=== PATIENT | female | born 1970 | race African-American/Black ===

== ENCOUNTER 2019-07-01 16:05 | Emergency (ER) | payer OTHER ==
[2019-07-01 16:22] VITALS: BMI 22.8
[2019-07-01] MEDS ORDERED: PANTOPRAZOLE SODIUM 40 MG VIAL IVPUSH ONE (16:53)
[2019-07-01] MEDS ORDERED: OCTREOTIDE ACETATE 50 MCG/1 ML - 1 ML VIAL IVPUSH ONE (16:57)
[2019-07-01] MEDS ORDERED: OCTREOTIDE ACETATE 200 MCG, OCTREOTIDE ACETATE 1,000 MCG in DEXTROSE 5%-WATER - 496 ML IVPB SCH (17:00)
[2019-07-01] MEDS ORDERED: PANTOPRAZOLE SODIUM 40 MG VIAL ONE (17:03)
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
[2019-07-01 17:24] LABS: BASO % 0.5 % (0-2.0); EOS % 6.4 % (0-4.5); HEMATOCRIT 41.5 % (32.4-45.2); HEMOGLOBIN 13.3 GM/dL (10.7-15.3); LYMPH % 32.8 % (8-40); MCH 28.7 pg (25.7-33.7); MCHC 32.1 g/dl (32.0-36.0); MEAN CELL VOLUME 89.4 fl (80-96); MEAN PLT VOLUME 10.1 fl (7.5-11.1); MONO % 9.6 % (3.8-10.2); NEUT % 50.7 % (42.8-82.8); PLATELET COUNT 233 K/MM3 (134-434); RBC 4.64 M/mm3 (3.60-5.2); RDW 14.1 % (11.6-15.6); WHITE BLOOD COUNT 4.9 K/mm3 (4.0-10.0)
[2019-07-01 17:40] LABS: INR 0.93 (0.83-1.09)
[2019-07-01 17:43] LABS: ACTIVATED PTT 32.5 SECONDS (25.2-36.5)
[2019-07-01 17:52] LABS: COCAINE, UR NEGATIVE ng/ml (CUTOFF=300); METHADONE, UR NEGATIVE ng/ml (CUTOFF=300); OPIATES, URI NEGATIVE ng/ml (CUTOFF=300); PHENCYCLIDINE,URINE NEGATIVE ng/ml (CUTOFF=25); URINE AMPHETAMINES NEGATIVE ng/ml (CUTOFF=500); URINE BARBITURATES NEGATIVE ng/ml (CUTOFF=200); URINE BENZODIAZEPINES NEGATIVE ng/ml (CUTOFF=200)
[2019-07-01 17:57] LABS: PHOSPHOROUS 4.3 mg/dL (2.5-4.9)
[2019-07-01 18:01] LABS: URINE APPEARANCE Error; URINE BILIRUBIN NEGATIVE (NEGATIVE); URINE COLOR YELLOW; URINE GLUCOSE (UA) NEGATIVE (NEGATIVE); URINE KETONE NEGATIVE (NEGATIVE); URINE LEUK ESTERASE NEGATIVE (NEGATIVE); URINE NITRITE NEGATIVE (NEGATIVE); URINE PROTEIN NEGATIVE (NEGATIVE); URINE UROBILINOGEN 0.2 mg/dL (0.2-1.0)
[2019-07-01 18:18] LABS: ALBUMIN 3.8 g/dl (3.4-5.0); BILIRUBIN,TOTAL 0.3 mg/dL (0.2-1); BLOOD UREA NITROGEN 7.9 mg/dL (7-18); CALCIUM 9.4 mg/dL (8.5-10.1); CREATININE 0.7 mg/dL (0.55-1.3); POTASSIUM 4.1 mmol/L (3.5-5.1); TOT PROT 7.4 g/dl (6.4-8.2)
--- NOTE | 2019-07-01 18:55 | PDOC ---
Documentation entered by David Curran SCRIBE, acting as scribe for Etta Pike MD. Etta Pike MD: This documentation has been prepared by the Bina bailey Xhesika, SCRIBE, under my direction and personally reviewed by me in its entirety. I confirm that the documentation accurately reflects all work, treatment, procedures, and medical decision making performed by me. Attending Attestation - Resident Resident Name: Marylu Trejo - ED Attending Attestation I have performed the following: I have examined & evaluated the patient, The case was reviewed & discussed with the resident, I agree w/resident's findings & plan - HPI HPI: 07/01/19 17:21 The patient is a 48 year old female with a significant past medical history of depression, EtOH usage (3-4 24oz cans of Brigid daily for 15ys), crack/ cocaine abuse who presents to the ED from [facility] for 2 weeks of bright red blood per rectum and blood tinged emesis, one episode at [facility]. Patient states she endorses intermittent blood tinged emesis, increased frequency, headache, nausea, and vomiting. The patient reports having diffuse abdominal pain and epigastric pain worsened when drinking and relieved when lying on her side. Patient states her last drink was this morning (24oz of brigid). Patient notes her LMP was 2014. Patient denies history of hemorrhoids. Patient denies anoreceptive intercourse. Denies fever, chills, chest pain, hemoptysis, SOB, palpitations, dizziness, weakness, D, bladder and bowel problems, leg swelling, No sick contacts or travel. No new changes in medications. Allergies: None Social history: etoh abuse. crack/cocaine abuse. marijuana use. Meds: as documented in EMR 07/01/19 20:49 - Physicial Exam PE: 07/01/19 17:23 Agree with the resident's HPI and PE as documented in the electronic medical record. NAD, well appearing, awake and alert EOMI, PERRL, MMM, nl conjunctiva, anicteric ; neck supple. lungs clear, RRR, abdomen soft nontender. Back nontender. COTE x4 , no focal neuro deficits. No peripheral edema. normal color for ethnicity, WWP. 07/01/19 19:46 - Medical Decision Making 07/01/19 19:47 hpi as documented VS reviewed wnl Vital Signs Temp Pulse Resp BP Pulse Ox 98.2 F 52 L 18 135/92 98 07/01/19 16:17 07/01/19 16:17 07/01/19 16:17 07/01/19 16:17 07/01/19 16:32 DDx PUD, ulcer, alcohol gastritis, esophageal spasm, GERD, electrolyte/ metabolic derangements, dehydration, UGIB, LGIB guaiac neg for blood, rectal exam unremarkable for blood labs and lytes wnl, lipase normal. neg preg test. no wbc ct, nontoxic, doubt infection H/H wnl, no anemia. coags normal, no coagulopathy or liver dysfunction. given GI cocktail, IVF and PPI, reassess abdomen benign, no peritoneal findings. feels better. workup provided. tolerated PO intake abdomen sono neg for ascites, GB unremarkable. no e/o cholecystitis. cxr clear, no acute pathology Pt to be discharged in stable condition back to [facility], communicated back with unremarkable workup, DC with Protonix daily, avoid alcohol/triggers, supportive management and GI followup. Patient made aware of clinical impression , treatment recommendations and disposition plan, return precautions discussed ( including but not limited to new or persistent/worsening symptoms, pain, fevers , or signs of infection, chest pain, respiratory distress, inability to tolerate oral intake, dehydration, syncope, or neurologic changes). Follow up with PMD and/or GI specialist as recommended, follow up information provided, take medications as instructed for duration of time. continue with supportive care, avoid triggers and precipitants. All questions answered to patient's satisfaction and expressed understanding and comfort with this. At the time of discharge, the patient is alert, clinically improved, tolerating po and verbalizes understanding of instructions, satisfied with the care received and felt comfortable with the plan. Patient does not suffer from an acute life- threatening medical condition at this time and is safe for outpatient follow- up. 07/01/19 20:51
[2019-07-01] MEDS ORDERED: MAG HYDROX/AL HYDROX/SIMETH 30 ML UNIT-DOSE CUP PO ONE (19:44)
[2019-07-01 19:57] VITALS: BP 127/85; PULSE 67; TEMP 98
[2019-07-01] MEDS ORDERED: MAG HYDROX/AL HYDROX/SIMETH 30 ML UNIT-DOSE CUP ONE (20:22)
[2019-07-02 09:08] LABS: N-TERMINAL BNP 118.8 pg/ml (5-125)
--- NOTE | 2019-07-02 11:31 | EKG ---
Test Reason : Blood Pressure : / mmHG Vent. Rate : 054 BPM Atrial Rate : 054 BPM P-R Int : 168 ms QRS Dur : 070 ms QT Int : 494 ms P-R-T Axes : 051 -02 050 degrees QTc Int : 468 ms SINUS BRADYCARDIA POSSIBLE LEFT ATRIAL ENLARGEMENT SEPTAL INFARCT , AGE UNDETERMINED ABNORMAL ECG NO PREVIOUS ECGS AVAILABLE Confirmed by DIMITRI DAMON MD ([id number]) on 07/02/2019 11:30:48 AM Referred By: Confirmed By:DIMITRI DAMON MD
== END 2019-07-01 23:14 | disposition home or self-care (01) ==
LOC: JER 16:05
PROC: 3E033GC Introduction of Other Therapeutic Substance into Peripheral Vein, Percutaneous Approach (ICD-10-PCS; principal; 2019-07-01)
DX: K29.70 Gastritis, unspecified, without bleeding (principal)
CPT/HCPCS: 36415; 71046-TC-FY; 76705-TC; 80053; 80307; 81003; 82150; 82272; 82550; 83605; 83690; 83735; 83880; 84100; 84484; 84703; 85025; 85610; 85730; 86850; 86900; 86901; 87086; 93005; 93010; 96365; 96375; 99285-25

== ENCOUNTER 2019-07-01 23:30 | Inpatient (IN) | payer OTHER ==
[2019-07-01 13:31] VITALS: BMI 22.8
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
--- NOTE | 2019-07-01 15:14 | PN ---
Teaching Attending Note Name of Resident: Rohit Cabello ATTENDING PHYSICIAN STATEMENT I saw and evaluated the patient. I reviewed the resident's note and discussed the case with the resident. I agree with the resident's findings and plan as documented. SUBJECTIVE: 48 y.o. female requesting detox from etoh use , reports 4 large cans of mixed drinks / day x 15 years, latest use today , reports nausea/ vomiting blood - bright red mixed in with vomitus , as well as Vital Signs - 24 hr 07/01/19 13:24 Temperature 97 F L Pulse Rate 65 Respiratory 20 Rate Blood Pressure 140/89 BRBPR on several occasions , icteric sclerae previously . OBJECTIVE: diffuse abdominal tenderness , anxious , mild UE tremors . ASSESSMENT AND PLAN: refer to ER for further eval & tx . Pt left w/ EMS in stable condition .
--- NOTE | 2019-07-01 23:38 | HP ---
CIWA Score Nausea/Vomitin-Int. Nausea w/Dry Heave Muscle Tremors: 4-Moderate,w/Arms Extend Anxiety: 1-Mildly Anxious Agitation: 2 Paroxysmal Sweats: 1-Minimal Palms Moist Orientation: 0-Oriented Tacttile Disturbances: 0-None Auditory Disturbances: 0-None Visual Disturbances: 0-None Headache: 0-None Present CIWA-Ar Total Score: 12 - Admission Criteria OAS Guidelines: Admission for Medically Managed Detox: Requires at least one of the followin. CIWA greater than 12 2. Seizures within the past 24 hours 3. Delirium tremens within the past 24 hours 4. Hallucinations within the past 24 hours 5. Acute intervention needed for co occurring medical disorder 6. Acute intervention needed for co occurring psychiatric disorder 7. Severe withdrawal that cannot be handled at a lower level of care (continued vomiting, continued diarrhea, abnormal vital signs) requiring intravenous medication and/or fluids 8. Patient presents the following: CIWA greater than 12 Admission Criteria Met: Admission criteria met Admission ROS [facility] - [facility] Chief Complaint: Returning from ER for admission for treatment of my alcohol problem. Allergies/Adverse Reactions: Allergies Allergy/AdvReac Type Severity Reaction Status Date / Time No Known Allergies Allergy Verified 07/01/19 16:22 History of Present Illness: 48 yo returns from [facility] Ed after referral earlier, by [facility], for evaluation of vomiting w/ presence of blood. Patient presented earlier w/ CIWA of 16 and returns for alcohol detox. Current CIWA = 12. PE completed in [facility] ED and in [facility] and will defer at this time. Labs: CBC/CMP/UA reviewed. ED Report: " DDx PUD, ulcer, alcohol gastritis, esophageal spasm, GERD, electrolyte/ metabolic derangements, dehydration, UGIB, LGIB guaiac neg for blood, rectal exam unremarkable for blood labs and lytes wnl, lipase normal. neg preg test. no wbc ct, nontoxic, doubt infection H/H wnl, no anemia. coags normal, no coagulopathy or liver dysfunction. given GI cocktail, IVF and PPI, reassess abdomen benign, no peritoneal findings. feels better. workup provided. tolerated PO intake abdomen sono neg for ascites, GB unremarkable. no e/o cholecystitis. cxr clear, no acute pathology Pt to be discharged in stable condition back to [facility], communicated back with unremarkable workup, DC with Protonix daily, avoid alcohol/triggers, supportive management and GI followup." Patient verbalizes an understanding of importance of following up w/ GI referral post discharge. Alcohol use began at age 7. Current usage 3- 4 24 oz Margaritas daily. Crack use began at age 33. Uses a few x/month. Last use 2 days ago. Nicotine use began at age 7. Does not smoke daily. 5-6 cig/week. Utox negative for illicit drugs. B/P: 155/95 HR: 58 Hx: Blackouts. Denies seizures. PMHx: Gastritis w/ vomiting w/ blood x 1 -2 months associated w/ abd pain. Intermittent bloody diarrhea x 2 days. Denies other significant PMH. MHHx: Depression. Denies thoughts of harming self or others. Unsure of MH meds. Prescription filled at [facility] in [facility]. Was also taking Vivitrol for alcohol use disorder. Last injection . Denies opiate medications or illicit use. Patient does not want to be restarted on Vivitrol. States it didn't work and she still drank. SHx: Unemployed. Homeless (living with a friend). Exam Limitations: No Limitations - Ebola screening Have you traveled outside of the country in the last 21 days: No (N) Have you had contact with anyone from an Ebola affected area: No Have you been sick,other than usual withdrawal symptoms: No (Denies exposure to measles) Do you have a fever: No - Review of Systems Constitutional: Changes in sleep (Difficulty falling and staying asleep.) EENT: reports: Blurred Vision Respiratory: reports: No Symptoms reported Cardiac: reports: Palpitations (Intermittent fast beating of heart unrelated to activity) GI: reports: Diarrhea (watery and somewhat uncontrollable. Using pull-ups.), Nausea, Rectal Bleeding, Vomiting (w/ blood), Abdominal cramping : reports: Frequency (w/o burning or blood) Musculoskeletal: reports: Back Pain (Chronic low back pain sitting or laying too long.) Integumentary: reports: No Symptoms Reported Neuro: reports: Numbness (Intermittent in fingers) Endocrine: reports: No Symptoms Reported Hematology: reports: No Symptoms Reported Psychiatric: reports: Judgement Intact, Orientated x3, Anxious, Depressed ( Denies thoughts of harming self or others) Patient History - Patient Medical History Hx Anemia: No Hx Cancer: No Hx Cardiac Disorders: No Hx Congestive Heart Failure: No HX Cerebrovascular Accident: No Hx Gastrointestinal Disorders: No Hx Liver Disease: No Hx Sexually Transmitted Disorders: No Hx Hepatitis C: No - Patient Surgical History Past Surgical History: No - PPD History Previous Implant?: Yes (CHR done on 07/01/19) Documented Results: Positive w/o proof Implanted On Prior [facility] Admission?: No PPD to be Administered?: No - Reproductive History Patient is a Female of Child Bearing Age (11 -55 yrs old): Yes Patient : No - Smoking Cessation Smoking history: Current some day smoker Have you smoked in the past 12 months: Yes Aproximately how many cigarettes per day: 1 Hx Chewing Tobacco Use: No Initiated information on smoking cessation: No 'Breaking Loose' booklet given: 07/02/19 - Substance & Tx. History Hx Alcohol Use: Yes Hx Substance Use: No Substance Use Type: Alcohol, Cocaine Hx Substance Use Treatment: Yes (Detox - years ago; Currently on Vivitrol ) - Substances abused Alcohol Substance route: Oral Frequency: Daily Amount used: a lot of 4 cans of margeritas/wine Age of first use: 7 Date of last use: 07/01/19 Cocaine Substance route: Smoking Frequency: 1-3 times last 30 days Amount used: $40-$50 Age of first use: 33 Date of last use: 06/29/19 Family Disease History - Family Disease History Family Disease History: Diabetes: Father (HTN), Mother (HTN), Heart Disease: Father, Mother Admission Physical Exam S - Vital Signs Vital Signs: Vital Signs - 24 hr 07/01/19 13:24 Temperature 97 F L Pulse Rate 65 Respiratory 20 Rate Blood Pressure 140/89 - Physical General Appearance: Yes: Mild Distress, Tremorous, Sweating, Anxious Respiratory: Yes: Lungs Clear, Normal Breath Sounds, No Respiratory Distress Cardiology: Yes: Regular Rhythm, S1, S2, Bradycardia (HR: 58) Abdominal: Yes: Soft, Increased Bowel Sounds, Tenderness (MId quad tenderness upon palpation. No guarding. No rebound.) Neurological: Yes: Fully Oriented, Alert - Diagnostic (1) Alcohol dependence with uncomplicated withdrawal Current Visit: Yes Status: Acute (2) Nicotine abuse Current Visit: Yes Status: Chronic (3) Gastritis Current Visit: Yes Status: Acute Qualifiers: Gastritis type: alcoholic Chronicity: acute Gastritis bleeding: presence of bleeding unspecified Qualified Code(s): K29.20 - Alcoholic gastritis without bleeding (4) History of hematemesis Current Visit: Yes Status: Acute Comment: Evaluated ED Cleared for Admission [facility] - Detox or Rehab [facility] Level of Care: Medically Managed Detox Regimen/Protocol: Librium Claeared for Rehab Admission: No Breathalyzer - Breathalyzer Breathalyzer: 0 Urine Drug Screen - Test Device Lot number: [id number] Expiration date: 04/01/19 - Control Is test valid?: Yes - Results Drug screen NEGATIVE: Yes Inpatient Rehab Admission - Rehab Decision to Admit Inpatient rehab admission?: No
[2019-07-02] MEDS ORDERED: MAGNESIUM CITRATE 300 ML BOTTLE PO PRN (00:31)
[2019-07-02] MEDS ORDERED: NICOTINE POLACRILEX 2 MG GUM BUC PRN (00:31)
[2019-07-02] MEDS ORDERED: chlordiazePOXIDE HCL 10 MG CAPSULE PO PRN (00:31)
[2019-07-02] MEDS ORDERED: MAG HYDROX/AL HYDROX/SIMETH 30 ML UNIT-DOSE CUP PO PRN (00:31)
[2019-07-02] MEDS ORDERED: ACETAMINOPHEN 325 MG TABLET (FP) PO PRN ×2 (00:31)
[2019-07-02] MEDS ORDERED: MENTHOL/PHENOL 1 EACH UD MM PRN (00:31)
[2019-07-02] MEDS ORDERED: MAGNESIUM HYDROX 2400MG/30ML ORAL SUSPENSION 30 ML CUP PO PRN (00:31)
[2019-07-02] MEDS ORDERED: chlordiazePOXIDE HCL 25 MG CAPSULE PO ONE (00:31)
[2019-07-02] MEDS ORDERED: METHOCARBAMOL 500 MG TABLET PO PRN (00:31)
[2019-07-02] MEDS: chlordiazePOXIDE HCL 25 MG CAPSULE PO SCH ×3 (05:55→21:21)
[2019-07-02] MEDS: PANTOPRAZOLE 40 MG TABLET (FP) PO SCH ×2 (10:13→21:21)
[2019-07-02] MEDS: PRENATAL VITAMINS W/ FOLIC ACID TABLET (FP) PO SCH (10:13)
--- NOTE | 2019-07-02 11:06 | PN ---
S CIWA - CIWA Score Nausea/Vomitin-No Nausea/No Vomiting Muscle Tremors: 2 Anxiety: 3 Agitation: 0-Normal Activity Paroxysmal Sweats: 3 Orientation: 0-Oriented Tacttile Disturbances: 0-None Auditory Disturbances: 0-None Visual Disturbances: 0-None Headache: 2-Mild CIWA-Ar Total Score: 10 [facility] Progress Note (SOAP) Subjective: c/o headache, sweats, anxiety, and interrupted sleep. Objective: 07/02/19 11:06 Vital Signs 07/02/19 07/02/19 07/02/19 03:30 07:15 09:47 Temperature 97.9 F 97.5 F L Pulse Rate 53 L 52 L Respiratory 18 16 18 Rate Blood Pressure 138/63 140/98 Assessment: 07/02/19 11:06 AOX3, in no acute respiratory distress. Full ROM, ambulating in the unit. withdrawal symptoms. Plan: continue detox.
--- NOTE | 2019-07-02 13:09 | PDOC ---
Patient Follow-up (Call Back) - Post ED Follow - Up Condition at time of discharge: Stable Reason for Call Back: Radiology (pt with R breast nodules noted on x-ray per Dr. Hanna. Findings communicated to TAMERA Suarez at [address])
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
--- NOTE | 2019-07-02 14:07 | PN ---
[facility] Progress Note Note: I was notified by TAMERA Acuna that she had a call back from [facility] Radiology department that pt's chest xray showed Right breast nodules. "Reason for Call Back: Radiology (pt with R breast nodules noted on x-ray per Dr. Hanna. Findings communicated to TAMERA Suarez at [facility])" pt was examined at bedside in no respiratory distress. Pt states she has right breast lump for over 25years now which her pmd is aware. Pt also states that as per the previous imaging studies she has had, she is been told that the lump in her right breast is not cancerous and she has to go for surgery for it to be removed, which she states she has not considered for several years now because of the scar the surgery will leave on her breast. Pt is instructed to ask for a copies of the imaging result upon discharge so that she can follow-up with her PMD. Pt verbalized understanding.
[2019-07-02] MEDS: THIAMINE HCL 100 MG TABLET (FP) PO SCH (21:21)
[2019-07-02] MEDS: MELATONIN 5 MG TABLETS PO PRN (21:21)
[2019-07-03] MEDS: chlordiazePOXIDE 5 MG CAPSULE PO SCH ×3 (05:24→22:44)
[2019-07-03] MEDS: PANTOPRAZOLE 40 MG TABLET (FP) PO SCH ×2 (10:24→22:44)
[2019-07-03] MEDS: PRENATAL VITAMINS W/ FOLIC ACID TABLET (FP) PO SCH (10:24)
--- NOTE | 2019-07-03 16:24 | PN ---
[facility] CIWA - CIWA Score Nausea/Vomitin-No Nausea/No Vomiting Muscle Tremors: 2 Anxiety: 2 Agitation: 2 Paroxysmal Sweats: 2 Orientation: 0-Oriented Tacttile Disturbances: 0-None Auditory Disturbances: 0-None Visual Disturbances: 0-None Headache: 0-None Present CIWA-Ar Total Score: 8 [facility] Progress Note (SOAP) Subjective: Diarrhea, anxious; c/o urinating a lot (urgency, denies dysuria), patient stated urinating a lot for > 1 year and her PCP is aware and told her every thing was fine. Patient encouraged to follow up with PCP and request Urology referral for further evaluation. Objective: 07/03/19 16:22 Last Vital Signs Temp Pulse Resp BP Pulse Ox 98.1 F 70 18 108/65 07/03/19 13:51 07/03/19 13:51 07/03/19 13:51 07/03/19 13:51 Laboratory Tests 07/03/19 07:30 RPR Titer Nonreactive Labs reviewed Assessment: 07/03/19 16:23 Withdrawal sxs Plan: Continue detox Encouraged PO water intake
[2019-07-03] MEDS: THIAMINE HCL 100 MG TABLET (FP) PO SCH (22:44)
[2019-07-03] MEDS: MELATONIN 5 MG TABLETS PO PRN (22:44)
[2019-07-04] MEDS ORDERED: chlordiazePOXIDE HCL 10 MG CAPSULE PO PRN
[2019-07-04] MEDS: chlordiazePOXIDE HCL 10 MG CAPSULE PO SCH ×3 (06:15→21:21)
[2019-07-04] MEDS: PANTOPRAZOLE 40 MG TABLET (FP) PO SCH ×2 (10:27→22:21)
[2019-07-04] MEDS: PRENATAL VITAMINS W/ FOLIC ACID TABLET (FP) PO SCH (10:27)
--- NOTE | 2019-07-04 12:45 | PN ---
[facility] CIWA - CIWA Score Nausea/Vomitin-No Nausea/No Vomiting Muscle Tremors: None Anxiety: 0-No Anxiety, at Ease Agitation: 1-Slight > Activity Paroxysmal Sweats: 1-Minimal Palms Moist Orientation: 0-Oriented Tacttile Disturbances: 0-None Auditory Disturbances: 0-None Visual Disturbances: 0-None Headache: 0-None Present CIWA-Ar Total Score: 2 [facility] Progress Note (SOAP) Subjective: mild sweats Objective: 07/04/19 12:42 Vital Signs Temperature 97.1 F L 07/04/19 10:00 Pulse Rate 51 L 07/04/19 10:00 Respiratory Rate 18 07/04/19 10:00 Blood Pressure 121/63 07/04/19 10:00 O2 Sat by Pulse Oximetry (%) aaox3 ambulating no acute distress Assessment: 07/04/19 12:45 mild withdrawals Plan: continue detox d/c in am
[2019-07-04] MEDS: THIAMINE HCL 100 MG TABLET (FP) PO SCH (22:21)
[2019-07-04] MEDS: MELATONIN 5 MG TABLETS PO PRN (22:22)
[2019-07-05] MEDS ORDERED: chlordiazePOXIDE HCL 10 MG CAPSULE PO ONE (05:00)
--- NOTE | 2019-07-05 09:04 | DS ---
[facility] Detox Discharge Summary Admission Date: 07/01/19 Discharge Date: 07/05/19 - History Present History: Alcohol Dependence - Physical Exam Results Vital Signs: Vital Signs Temperature 97.2 F L 07/05/19 06:00 Pulse Rate 50 L 07/05/19 06:00 Respiratory Rate 16 07/05/19 06:00 Blood Pressure 114/89 07/05/19 06:00 O2 Sat by Pulse Oximetry (%) Pertinent Admission Physical Exam Findings: pt arrived in withdrawals Laboratory Tests 07/03/19 07:30 RPR Titer Nonreactive pt is aaox3 ambulating no acute distress no s/s of withdrawals - Treatment Hospital Course: Detox Protocol Followed, Detoxed Safely, Responded well, Discharged Condition Good, Rehab Referral Accepted Patient has Accepted a Rehab Referral to: pt referred to [facility] inpatient rehab - Medication Discharge Medications: Ambulatory Orders Naltrexone Microspheres [Vivitrol] 380 mg IM MONTHLY 07/01/19 Pantoprazole Sodium [Protonix] 40 mg PO BID 7 Days #14 tablet. 07/01/19 - Diagnosis (1) Alcohol dependence with uncomplicated withdrawal Current Visit: Yes Status: Chronic (2) Insomnia Current Visit: Yes Status: Chronic (3) Substance induced mood disorder Current Visit: Yes Status: Chronic (4) Post traumatic stress disorder (PTSD) Current Visit: Yes Status: Suspected (5) Gastritis Current Visit: Yes Status: Suspected Qualifiers: Gastritis type: alcoholic Chronicity: chronic Gastritis bleeding: without bleeding Qualified Code(s): K29.20 - Alcoholic gastritis without bleeding - AMA Did Patient Leave Against Medical Advice: No
[2019-07-05] MEDS: PANTOPRAZOLE 40 MG TABLET (FP) PO SCH (10:27)
[2019-07-05] MEDS: PRENATAL VITAMINS W/ FOLIC ACID TABLET (FP) PO SCH (10:27)
[2019-07-05 13:13] VITALS: BP 114/75; PULSE 73; TEMP 98.1
== END 2019-07-05 13:54 | disposition home or self-care (01) | DRG 774 ==
LOC: YASAS 23:30 → Y6N 23:41
PROVIDERS: ADMIT Surgery; ATTEND Surgery
PROC: HZ2ZZZZ Detoxification Services for Substance Abuse Treatment (ICD-10-PCS; principal; 2019-07-01)
DX: F10.230 Alcohol dependence with withdrawal, uncomplicated (principal); F14.20 Cocaine dependence, uncomplicated; F17.200 Nicotine dependence, unspecified, uncomplicated; F19.24 Other psychoactive substance dependence with psychoactive substance-induced mood disorder; F43.10 Post-traumatic stress disorder, unspecified; G47.00 Insomnia, unspecified; K29.20 Alcoholic gastritis without bleeding; K92.0 Hematemesis; N63.10 Unspecified lump in the right breast, unspecified quadrant; Z59.0 Homelessness
CPT/HCPCS: 36415; 86593; 87389